=== PATIENT | male | born 1995 | race Caucasian/White ===

== ENCOUNTER 2017-09-16 10:44 | Inpatient (IN) | payer MEDICAID ==
[~2017-09-16] VITALS: Ht 177.8 cm; Wt 64.5 kg
--- NOTE | ~2017-09-16 | EC ---
PATIENT:MEGAN HARRY DATE OF SERVICE: 09/16/17 SEX: M MEDICAL RECORD: [id number] DATE OF : [birth year] LOCATION:[facility] D.230 AGE OF PATIENT: 22 ADMISSION DATE: 09/16/17 REFERRING PHYSICIAN: INTERPRETING PHYSICIAN: WILFREDO BARRIENTOS MD ECHOCARDIOGRAM REPORT ECHO CHARGES 4 ECHO COMPLETE CLINICAL DIAGNOSIS: FEVER/TACHYCARDIA ECHOCARDIOGRAPHIC MEASUREMENTS (adult normal given) AC root (d.<3.7cm) 3.8 cm LV Septum d (<1.2 cm> 1.2 cm Valve Excursion 1.8 cm LV Septum (systole) 1.5 cm Left Atria (s.<4.0cm> 3.8 cm LVPW d(<1.2cm) 1.5 cm RV (d.<2.3cm) 2.9 cm LVPW (sytole) 1.9 cm LV diastole(<5.6CM) 3.7 cm MV E-F(>70mm/sec) cm LV systole 2.8 cm LVOT Diameter 2.2 cm MV exc.(>10mm) 1.9 cm Est.ejection fraction (50-75%) % Pericardial Effusion N DOPPLER: LVIT cm/sec A 88.0 cm/sec E 114 cm/sec LA cm/sec RVSP 35 mmHg LVOT 132 cm/sec AOP1/2T m/s Asc. Ao 147 cm/sec RVOT 97 cm/sec RA cm/sec PA 131 cm/sec AV Gradient Peak 88.66mmHg AV Mean 4.32 mmHg AV Area 3.9 cm MV Gradient Peak 6.58 mmHg MV Mean 3.19 mmHg MV Area cm COMMENTS: Singing Teacher: Kurtis STACY Referral Agent: 1 Dr. Barrientos TAPE# PACS DATE OF SERVICE: 09/16/2017 ECHOCARDIOGRAM FINDINGS: 1. Left ventricular chamber size is within normal limits. Left ventricular systolic function is normal. Overall ejection fraction estimated at 65%. 2. Left atrium, right atrium, and right ventricle chamber sizes are within normal limits. 3. Valvular structures have normal structure and motion. ECHOCARDIOGRAM REPORT [id number] MEGAN HARRY 4. Doppler interrogation reveals no significant valvular insufficiency or stenosis. 5. No evidence of pericardial effusion or left ventricular thrombus. TRANSINT:[id number] Voice Confirmation ID: [id number] DOCUMENT ID: [id number] WILFREDO BARRIENTOS MD at 1202 CC: [id number] DICTATION DATE: 09/16/17 1537 CRANBERRY GROWER: 09/16/17 1610 DIS IN 09/19/17 [id number] [place] [address]
[2017-09-16 12:33] LABS: BASOPHILS 0.1 % (0-2); EOSINOPHILS 0.1 % (0-7); HEMATOCRIT 41.3 % (42.0-54.0); HEMOGLOBIN 14.6 g/dL (13.5-17.5); IMMATURE GRANULOCYTES 0.2 % (0-5); MCH 30.1 pg (26.0-34.0); MCHC 35.4 g/dL (31.0-37.0); MCV 85.2 fL (80.0-100.0); MONOCYTES 10.8 % (2-11); NEUTROPHILS 83.8 % (40-80); PLATELET COUNT 169 10x3/uL (130-400); RBC 4.85 10x6/uL (4.20-6.10); RDW 12.8 % (11.5-14.5); WBC 16.7 10x3/uL (4.8-10.8)
[2017-09-16 13:11] LABS: APTT 33.8 SECONDS (22.8-39.4); INR 1.14 (0.85-1.17); PROTIME 14.1 SECONDS (11.6-15.0)
[2017-09-16 13:12] LABS: D-DIMER-QUANTITATIVE < 0.27 ug/mLFEU (0.20-0.54)
[2017-09-16 13:13] LABS: ALBUMIN 4.1 g/dL (3.4-5.0); ALKALINE PHOSPHATASE 58 U/L (46-116); ALT (SGPT) 22 U/L (10-68); BILIRUBIN - TOTAL 0.95 mg/dL (0.2-1.3); CALC OSMOLALITY 269 mosm/kg (275-300); CALCIUM 8.9 mg/dL (8.5-10.1); CARBON DIOXIDE 20.6 mmol/L (21.0-32.0); CHLORIDE - SERUM 99 mmol/L (98-107); GLUCOSE 115 mg/dL (74-106); POTASSIUM - SERUM 3.3 mmol/L (3.5-5.1); PROTEIN - SERUM 7.3 g/dL (6.4-8.2); SODIUM 134 mmol/L (136-145); UREA NITROGEN 14 mg/dL (7-18); eGFR NON AFRICAN AMERICAN > 90 mL/min (90-120)
[2017-09-16 13:23] LABS: AMYLASE - SERUM 19 U/L (25-115); CKMB 0.2 U/L (0.0-3.6); CREATINE KINASE 51 UL (21-232); LIPASE 56 U/L (73-393); MAGNESIUM - SERUM 1.7 mg/dL (1.8-2.4); PRO BNP 38 pg/mL (0-125)
[2017-09-16 13:24] LABS: TROPONIN-I < 0.017 ng/mL (0.000-0.060)
[2017-09-16 13:50] LABS: UDS - AMPHET POSITIVE QUAL (NEGATIVE); UDS - BARB NEGATIVE QUAL (NEGATIVE); UDS - BENZO NEGATIVE QUAL (NEGATIVE); UDS - COCAINE NEGATIVE QUAL (NEGATIVE); UDS - OPIATE NEGATIVE QUAL (NEGATIVE); UDS - PCP NEGATIVE QUAL (NEGATIVE); UDS - THC NEGATIVE QUAL (NEGATIVE)
[2017-09-16 14:12] LABS: APPEARANCE HAZY (CLEAR); BILIRUBIN NEGATIVE (NEGATIVE); COLOR YELLOW (YELLOW); GLUCOSE NEGATIVE (NEGATIVE); KETONE MODERATE mg/dL (NEGATIVE); NITRITE NEGATIVE (NEGATIVE); PROTEIN NEGATIVE (NEGATIVE); SPECIFIC GRAVITY 1.015 (1.005-1.020); UROBILINOGEN NORMAL (NORMAL)
[2017-09-16 18:04] LABS: ERYTHROCYTE SEDIMENTATION RATE 8 mm/hr (0-15)
[2017-09-16 18:39] VITALS: BP 111/62; BMI 20.9
[2017-09-16 19:00] VITALS: BP 111/62; BP 115/64
[2017-09-16 20:00] VITALS: BP 110/72
[2017-09-16 20:08] VITALS: Ht 177.8 cm; Wt 64.5 kg
[2017-09-16 21:00] VITALS: BP 101/57
[2017-09-16 22:00] VITALS: BP 84/47
[2017-09-16 23:00] VITALS: BP 84/48
[2017-09-17] VITALS (20 sets, daily range): BP systolic 70–117; BP diastolic 34–74
[2017-09-17 07:17] LABS: ALBUMIN 3.3 g/dL (3.4-5.0); ALKALINE PHOSPHATASE 55 U/L (46-116); ALT (SGPT) 24 U/L (10-68); BILIRUBIN - TOTAL 0.85 mg/dL (0.2-1.3); CALC OSMOLALITY 269 mosm/kg (275-300); CALCIUM 8.9 mg/dL (8.5-10.1); CARBON DIOXIDE 25.1 mmol/L (21.0-32.0); CHLORIDE - SERUM 101 mmol/L (98-107); GLUCOSE 95 mg/dL (74-106); POTASSIUM - SERUM 3.9 mmol/L (3.5-5.1); PROTEIN - SERUM 6.7 g/dL (6.4-8.2); SODIUM 136 mmol/L (136-145); UREA NITROGEN 7 mg/dL (7-18); eGFR NON AFRICAN AMERICAN > 90 mL/min (90-120)
[2017-09-17 08:14] LABS: BASOPHILS 0.1 % (0-2); EOSINOPHILS 0.2 % (0-7); HEMATOCRIT 40.3 % (42.0-54.0); HEMOGLOBIN 14.1 g/dL (13.5-17.5); IMMATURE GRANULOCYTES 0.3 % (0-5); LYMPHOCYTES 6.3 % (15-50); MCV 85.7 fL (80.0-100.0); MEAN PLATELET VOLUME 10.9 fL (7.4-10.4); NEUTROPHILS 82.1 % (40-80); PLATELET COUNT 156 10x3/uL (130-400); RDW 12.8 % (11.5-14.5); WBC 15.4 10x3/uL (4.8-10.8)
[2017-09-17 08:16] LABS: ERYTHROCYTE SEDIMENTATION RATE 17 mm/hr (0-15)
[2017-09-17 12:07] LABS: MONO NEGATIVE (NEGATIVE)
[2017-09-18] VITALS (9 sets, daily range): BP systolic 97–119; BP diastolic 45–68
[2017-09-18 03:05] LABS: BASOPHILS 0.1 % (0-2); EOSINOPHILS 0.5 % (0-7); HEMATOCRIT 38.2 % (42.0-54.0); HEMOGLOBIN 13.4 g/dL (13.5-17.5); IMMATURE GRANULOCYTES 0.2 % (0-5); LYMPHOCYTES 9.6 % (15-50); MCH 29.9 pg (26.0-34.0); MCHC 35.1 g/dL (31.0-37.0); MCV 85.3 fL (80.0-100.0); MEAN PLATELET VOLUME 9.8 fL (7.4-10.4); MONOCYTES 13.1 % (2-11); NEUTROPHILS 76.5 % (40-80); PLATELET COUNT 158 10x3/uL (130-400); RBC 4.48 10x6/uL (4.20-6.10); RDW 12.6 % (11.5-14.5); WBC 13.6 10x3/uL (4.8-10.8)
[2017-09-18 03:21] LABS: CALC OSMOLALITY 273 mosm/kg (275-300); CALCIUM 8.6 mg/dL (8.5-10.1); CARBON DIOXIDE 27.1 mmol/L (21.0-32.0); CHLORIDE - SERUM 103 mmol/L (98-107); CREATININE - SERUM 0.8 mg/dL (0.6-1.3); GLUCOSE 96 mg/dL (74-106); POTASSIUM - SERUM 3.8 mmol/L (3.5-5.1); SODIUM 138 mmol/L (136-145); UREA NITROGEN 6 mg/dL (7-18); eGFR NON AFRICAN AMERICAN > 90 mL/min (90-120)
[2017-09-19 03:00] VITALS: BP 97/65
[2017-09-19 07:00] VITALS: BP 98/50
[2017-09-19] MEDS ORDERED: NYSTATIN ORAL SU5 ML PO (07:45)
[2017-09-19] MEDS ORDERED: Chloraseptic Spray [ TOPICAL (07:46)
[2017-09-19] MEDS ORDERED: IBUPROFEN600 MG PO (07:46)
[2017-09-19] MEDS ORDERED: AUGMENTIN 875-11 TAB PO (07:47)
[2017-09-20 21:08] LABS: EBV - EARLY ANTIGEN AB IGG <9.0 U/mL (0.0-8.9); EBV - NUCLEAR ANTIGEN AB IGG 58.8 U/mL (0.0-17.9); EBV VIRAL CAPSID AB IGG 52.4 U/mL (0.0-17.9); EBV VIRAL CAPSID AB IGM <36.0 U/mL (0.0-35.9)
== END 2017-09-19 09:09 | disposition home or self-care (01) | DRG 872 ==
LOC: D.ER 10:44 → D.EDHOLD 16:46 → D.ICU 16:52
PROVIDERS: Family Medicine
DX: A41.9 Sepsis, unspecified organism (principal); F31.30 Bipolar disorder, current episode depressed, mild or moderate severity, unspecified; J02.9 Acute pharyngitis, unspecified; F41.9 Anxiety disorder, unspecified; F15.29 Other stimulant dependence with unspecified stimulant-induced disorder; R51 Headache; Z72.0 Tobacco use

== ENCOUNTER 2020-11-03 19:33 | Emergency (ER) | payer BC ==
[~2020-11-03] VITALS: Ht 177.8 cm; Wt 77.3 kg
[~2020-11-03 19:33] MED LIST: AUGMENTIN 875-11 TAB PO; Chloraseptic Spray [ TOPICAL; IBUPROFEN600 MG PO; NYSTATIN ORAL SU5 ML PO
[2020-11-03 20:04] VITALS: BP 120/51; Ht 177.8 cm; Wt 77.3 kg
== END 2020-11-03 23:26 | disposition home or self-care (01) ==
LOC: D.ER 19:33
DX: J02.0 Streptococcal pharyngitis (principal); Z72.0 Tobacco use